=== PATIENT | female | born 1955 | race Caucasian/White ===

== ENCOUNTER 2020-07-15 08:27 | Outpatient (CLI) | payer MEDICARE, OTHER ==
--- NOTE | 2020-07-16 07:47 | Mammography Report ---
BILATERAL DIGITAL SCREENING MAMMOGRAM 3D/2D: 07/15/2020 CLINICAL: Routine screening. Comparison is made to exams dated: 01/24/2016 mammogram, 11/16/2015 ultrasound - [facility], 01/08 ultrasound biopsy, 01/28/2015 mammogram, 01/22/2015 ultrasound - [facility], and 1 ultrasound - [facility]. There are scattered fibroglandular elements in bot h breasts. There is a biopsy clip in the right breast. No significant masses, calcifications, or other findings are seen in either breast. There has been no significant interval change. IMPRESSION: NEGATIVE There is no mammographic evidence of malignancy. A 1 year screening mammogram is recommended. This exam was interpreted at Station ID: [id number]. NOTE: For mammograms, a report in lay terms will be sent to the patient. Approximately 15% of breast malignancies will not be visualized mammographically. In the management of a palpable breast mass, a negative mammogram must not discourage biopsy of a clinically suspicious lesion. Electronically Signed By: Tab Torres [email or web address]/[email or web address]:07/15/2020 09:30:56 ACR BI-RADS Category 1: Negative 3341F PARENCHYMAL PATTERN: (A) - The breast(s) demonstrate(s) scattered fibroglandular densities. BI-RADS CATEGORY: (1) - 1 RECOMMENDATION: (ANNUAL) - Recommend routine annual screening mammography. [id number] 1 year screening LATERALITY: (B)
== END 2020-07-15 08:28 | disposition home or self-care (01) ==
LOC: DI.N 08:27
DX: Z12.31 Encounter for screening mammogram for malignant neoplasm of breast (principal)